=== PATIENT | female | born 1985 | race Caucasian/White ===

== ENCOUNTER 2017-06-17 08:05 | Emergency (ER) | payer MEDICAID, OTHER ==
[~2017-06-17] VITALS: Ht 157.5 cm; Wt 82.0 kg
[2017-06-17 10:30] LABS: HCG SCREEN NEGATIVE
[2017-06-17 10:36] LABS: CLARITY URINE CLOUDY (CLEAR); COLOR URINE YELLOW (YELLOW); GLUCOSE URINE NEGATIVE (NEGATIVE); KETONES URINE NEGATIVE (NEGATIVE); LEUKOCYTE ESTERASE URINE 3+ (NEGATIVE); NITRITE URINE NEGATIVE (NEGATIVE); OCCULT BLOOD URINE TRACE (NEGATIVE); PH URINE 7.5 (4.5-8.0); PROTEIN URINE NEGATIVE (NEGATIVE); SPECIFIC GRAVITY URINE 1.009 (1.005-1.030); UROBILINOGEN URINE 0.2 E.U./dL (0.2-1.0)
[2017-06-17 11:40] VITALS: BP 116/60
== END 2017-06-17 11:52 | disposition home or self-care (01) ==
LOC: ER 09:11
DX: N39.0 Urinary tract infection, site not specified (principal)
CPT/HCPCS: 81001; 81025; 84703; 99283